=== PATIENT | male | born 1950 | race Caucasian/White ===

== ENCOUNTER 2017-06-30 21:16 | Emergency (ER) | payer MEDICARE, MEDICAID ==
[~2017-06-30] VITALS: Ht 167.6 cm; Wt 75.0 kg
[~2017-06-30 21:16] MED LIST: APIX5TAB PO; LOSA50TA37 PO
[2017-06-30 21:35] VITALS: BP 142/91
== END 2017-06-30 22:29 | disposition home or self-care (01) ==
LOC: EMS 21:36
DX: I83.891 Varicose veins of right lower extremity with other complications (principal); I10 Essential (primary) hypertension
CPT/HCPCS: 99283